=== PATIENT | female | born 2000 | race Hispanic/Latino ===

== ENCOUNTER 2021-05-03 09:33 | Emergency (ER) | payer SELFPAY ==
[~2021-05-03] VITALS: Ht 162.6 cm; Wt 113.4 kg
[2021-05-03 09:35] VITALS: BP 157/54
== END 2021-05-03 14:49 | disposition home or self-care (01) ==
LOC: EDH 09:33
DX: R51.9 Headache, unspecified (principal); Z53.21 Procedure and treatment not carried out due to patient leaving prior to being seen by health care provider

== ENCOUNTER 2023-01-27 19:05 | Emergency (ER) | payer MEDICAID ==
[~2023-01-27] VITALS: Ht 162.6 cm; Wt 94.8 kg
[2023-01-27] MEDS ORDERED: HYDR26CR2 TP (21:24)
[2023-01-27] MEDS ORDERED: GLYC1MED48 TP (21:24)
[2023-01-27 21:26] VITALS: BP 119/75
[2023-01-27] MEDS ORDERED: ACETAMINOPHEN 500 MG TABLET PO ONE (21:30)
== END 2023-01-27 21:57 | disposition home or self-care (01) ==
LOC: EDH 19:05
DX: K64.9 Unspecified hemorrhoids (principal)
CPT/HCPCS: 99282